=== PATIENT | female | born 2000 | race Hispanic/Latino ===

== ENCOUNTER 2024-07-18 18:26 | Emergency (ER) | payer BC ==
[~2024-07-18] VITALS: Ht 167.6 cm; Wt 67.6 kg
[2024-07-18 18:30] VITALS: PULSE 88; RESP 18; TEMP 98.2
[2024-07-18] MEDS ORDERED: METOCLOPRAMIDE HCL 10 MG/2ML VIAL IV ONE (19:15)
[2024-07-18] MEDS: SODIUM CHLORIDE 0.9% 1000ML 1,000 ML IV STA (19:50)
[2024-07-18] MEDS ORDERED: ONDANSETRON HCL INJ 2MG/ML 2ML 2 MG/ML VIAL ONE (19:50)
[2024-07-18] MEDS: ONDANSETRON HCL INJ 2MG/ML 2ML 2 MG/ML VIAL IV STA (21:18)
[2024-07-18] MEDS: DIPHENHYDRAMINE HCL INJ 50 MG/ML VIAL IV ONE (21:28)
[2024-07-18] MEDS: DEXAMETHASONE SOD PHOS INJ 4 MG/ML SDV IV ONE (21:28)
[2024-07-18] MEDS: KETOROLAC TROMETHAMINE 30 MG/ML VIAL IV STA (21:35)
[2024-07-18] MEDS ORDERED: ONDANSETRON ODT4 MG PO (22:42)
[2024-07-18] MEDS ORDERED: FIORICET 50-301 EACH PO (22:43)
[2024-07-18] MEDS ORDERED: IBUPROFEN600 MG PO (22:44)
[2024-07-18 23:00] VITALS: BP 117/69; PULSE 100; RESP 18; TEMP 98.6; O2SAT 99
== END 2024-07-18 23:00 | disposition home or self-care (01) ==
LOC: FSED 18:34
DX: R51.9 Headache, unspecified (principal); Z56.3 Stressful work schedule; R42 Dizziness and giddiness; R11.0 Nausea; R09.81 Nasal congestion
CPT/HCPCS: 70450; 80053; 81003; 81025; 85025; 99284; J1100; J1200; J1885; J2405; J7030